=== PATIENT | male | born 1970 | race Caucasian/White ===

== ENCOUNTER 2017-12-01 06:03 | Day surgery (SDC) | payer OTHER ==
[~2017-12-01] VITALS: Ht 175.3 cm; Wt 84.6 kg
[2017-12-01] MEDS ORDERED: EPINEPHRINE 1 MG/ML, 1ML ONE (06:32)
[2017-12-01] MEDS ORDERED: BUPIVACAINE/PF 0.5% ONE (06:32)
[2017-12-01 06:36] VITALS: BP 146/98
[2017-12-01] MEDS ORDERED: none per pt (06:36)
[2017-12-01] MEDS ORDERED: LACTATED RINGERS 1,000 ML IV SCH (06:54)
[2017-12-01] MEDS ORDERED: FENTANYL PF 100 MCG/2ML ONE (07:24)
[2017-12-01] MEDS ORDERED: PROPOFOL 10 MG/ML, 20ML ONE (07:25)
[2017-12-01] MEDS ORDERED: MIDAZOLAM 1 MG/ML, 2ML ONE (07:25)
[2017-12-01] MEDS ORDERED: SUCCINYLCHOLINE 20 MG/ML, 10ML ONE (07:26)
[2017-12-01] MEDS ORDERED: LIDOCAINE-MPF 2% ,5ML ONE (07:26)
[2017-12-01] MEDS ORDERED: CEFAZOLIN 1,000 MG ONE ×2 (07:28)
[2017-12-01] MEDS ORDERED: LIDOCAINE GEL 2%, 5ML ONE (07:28)
[2017-12-01] MEDS ORDERED: ONDANSETRON 2MG/ML, 2ML ONE (07:37)
[2017-12-01] MEDS ORDERED: DEXAMETHASONE 4 MG/ML, 1ML ONE (07:37)
[2017-12-01] MEDS ORDERED: METOCLOPRAMIDE 5 MG/ML, 2ML ONE (07:37)
[2017-12-01] MEDS ORDERED: MIDAZOLAM 1 MG/ML, 2ML IV PRN (08:00)
[2017-12-01] MEDS ORDERED: MEPERIDINE/PF 25MG/0.5ML IVPush PRN (08:00)
[2017-12-01] MEDS ORDERED: FENTANYL PF 100 MCG/2ML IV PRN (08:00)
[2017-12-01] MEDS ORDERED: LABETALOL 5MG/ML, 20ML IV PRN (08:00)
[2017-12-01] MEDS ORDERED: HYDROmorphone 1 MG/ML, 1ML IV PRN (08:00)
[2017-12-01] MEDS ORDERED: OXYcodone 5 MG/5 ML ORAL.SOL UDC PO PRN (08:00)
[2017-12-01] MEDS ORDERED: ONDANSETRON 2MG/ML, 2ML IVPush PRN (08:00)
[2017-12-01] MEDS ORDERED: MEPERIDINE/PF 50 MG/ML ONE (08:54)
[2017-12-01] MEDS ORDERED: ACETAMINOPHEN 650 MG/20.3 ML UDC ONE (09:15)
[2017-12-01] MEDS ORDERED: OXYcodone 5 MG/5 ML ORAL.SOL UDC ONE (09:15)
[2017-12-01] MEDS ORDERED: ACETAMINOPHEN 650 MG/20.3 ML UDC PO ONE (09:17)
== END 2017-12-01 11:15 ==
LOC: OUT 06:03
PROVIDERS: ATTEND Colon & Rectal Surgery
DX: K40.90 Unilateral inguinal hernia, without obstruction or gangrene, not specified as recurrent (principal); K42.9 Umbilical hernia without obstruction or gangrene; Z72.89 Other problems related to lifestyle
CPT/HCPCS: 49585; 49650; C1727; C1781; J0171; J0330; J0690; J1100; J2175; J2250; J2405; J2704; J2765; J3010; J3490; J7120

== ENCOUNTER → 2018-04-21 | Outpatient (CLI) | payer OTHER ==
[~2018-04-21] MED LIST: none per pt
== END | disposition home or self-care (01) ==
LOC: CFH 08:41
PROVIDERS: ATTEND Orthopaedic Surgery
DX: M67.462 Ganglion, left knee (principal)

== ENCOUNTER 2018-05-22 00:21 | Emergency (ER) | payer OTHER ==
[~2018-05-22] VITALS: Ht 175.3 cm; Wt 90.4 kg
[2018-05-22 00:58] LABS: BASOPHILS # (AUTO) 0.02 x10^3/uL (0-0.1); BASOPHILS % (AUTO) 0 % (0-1); EOSINOPHILS # (AUTO) 0.19 x10^3/uL (0-0.4); EOSINOPHILS % (AUTO) 3 % (1-7); LYMPHOCYTES # (AUTO) 2.24 x10^3/uL (1-3.4); LYMPHOCYTES % (AUTO) 31 % (22-44); MD NO; MEAN CORPUSCULAR HEMOGLOBIN 30.4 pg (27.5-34.5); MEAN CORPUSCULAR HGB CONC 33.9 g/dL (33.2-36.2); MEAN CORPUSCULAR VOLUME 89.5 fL (81-97); MEAN PLATELET VOLUME 8.2 fL (7.4-10.4); MONOCYTES # (AUTO) 0.62 x10^3/uL (0.2-0.8); MONOCYTES % (AUTO) 9 % (2-9); NEUTROPHILS # (AUTO) 4.27 x10^3/uL (1.8-6.8); NEUTROPHILS % (AUTO) 58 % (42-75); PLATELET COUNT 240 x10^3/uL (130-400); RED CELL DISTRIBUTION WIDTH 13.5 % (9.4-14.8)
[2018-05-22 01:10] LABS: ANION GAP 7 mmol/L (5-15); CHLORIDE 111 mmol/L (98-107); CREATININE 1.05 mg/dL (0.7-1.3)
[2018-05-22 01:19] LABS: FREE T4 (FREE THYROXINE) 0.96 ng/dL (0.76-1.46)
[2018-05-22 02:24] VITALS: BP 134/72
== END 2018-05-22 02:30 | disposition home or self-care (01) ==
LOC: ED 00:59
DX: R06.00 Dyspnea, unspecified (principal)
CPT/HCPCS: 36415; 71045; 80048; 82040; 83880; 84439; 84443; 85025; 93005; 99284

== ENCOUNTER → 2018-05-26 | Outpatient (CLI) | payer OTHER ==
[~2018-05-26] MED LIST changes: +OMNIPAQUE 350 MG/ML, 100ML BOTTLE ONE
== END | disposition home or self-care (01) ==
LOC: RAD 09:49
PROVIDERS: ATTEND Family Medicine
DX: R91.8 Other nonspecific abnormal finding of lung field (principal)
CPT/HCPCS: 71260; Q9967

== ENCOUNTER → 2018-10-10 | Outpatient (CLI) | payer OTHER ==
[~2018-10-10] MED LIST changes: -OMNIPAQUE 350 MG/ML, 100ML BOTTLE ONE
== END | disposition home or self-care (01) ==
LOC: CFH 09:29
PROVIDERS: ATTEND Internal Medicine Cardiovascular Disease
DX: R06.02 Shortness of breath (principal)
CPT/HCPCS: 93306

== ENCOUNTER 2018-10-25 08:53 | Outpatient (CLI) | payer OTHER | END 2018-10-25 23:59 | disposition home or self-care (01) | LOC: CVU 08:53 | PROVIDERS: ATTEND Internal Medicine Cardiovascular Disease | DX: R06.02 Shortness of breath (principal) | CPT/HCPCS: 93306 ==